=== PATIENT | male | born 1980 | race African-American/Black ===

== ENCOUNTER 2022-04-19 17:15 | Emergency (ER) | payer OTHER ==
[~2022-04-19] VITALS: Ht 190.5 cm; Wt 123.6 kg
[2022-04-19 17:16] VITALS: BP 131/60
== END 2022-04-19 22:23 | disposition home or self-care (01) ==
LOC: M ED 17:15
DX: S93.402A Sprain of unspecified ligament of left ankle, initial encounter (principal); W10.1XXA Fall (on)(from) sidewalk curb, initial encounter; Y92.410 Unspecified street and highway as the place of occurrence of the external cause; Y93.02 Activity, running; Y99.9 Unspecified external cause status

== ENCOUNTER 2023-11-04 15:44 | Emergency (ER) | payer OTHER ==
[~2023-11-04] VITALS: Ht 190.5 cm; Wt 127.2 kg
[2023-11-04] MEDS ORDERED: ACET-683 PO (15:51)
[2023-11-04 17:35] VITALS: BP 124/79; TEMP 98.9; O2SAT 98
[2023-11-04] MEDS ORDERED: NAPR-837 PO (17:57)
[2023-11-04] MEDS ORDERED: PRED20TA PO (17:57)
== END 2023-11-04 18:11 | disposition home or self-care (01) ==
LOC: M ED 15:44
DX: M25.572 Pain in left ankle and joints of left foot (principal); M10.072 Idiopathic gout, left ankle and foot; M20.12 Hallux valgus (acquired), left foot; Z79.1 Long term (current) use of non-steroidal anti-inflammatories (NSAID); Z79.52 Long term (current) use of systemic steroids